=== PATIENT | female | born 1950 | race African-American/Black ===

== ENCOUNTER 2018-04-05 12:59 | Emergency (ER) | payer MEDICARE ==
[~2018-04-05] VITALS: Ht 175.3 cm; Wt 72.6 kg
[2018-04-05 13:00] VITALS: BP 127/79
== END 2018-04-05 16:13 | disposition left against medical advice (07) ==
LOC: ER 12:59
DX: R05 Cough (principal); K08.89 Other specified disorders of teeth and supporting structures; Z53.21 Procedure and treatment not carried out due to patient leaving prior to being seen by health care provider
CPT/HCPCS: 71046